=== PATIENT | female | born 1940 | race Caucasian/White ===

== ENCOUNTER 2017-10-03 11:44 | Emergency (ER) | payer OTHER ==
[2017-10-03 12:52] LABS: Absolute Lymphocytes (CBC) 3.5 K/uL (0.7-4.9); Absolute Monocytes 0.7 K/uL (0.1-1.3); Basophils % 0.6 % (0-1.3); Eosinophils % 1.5 % (0-4.4); Hematocrit 38.8 % (36.0-45.0); Lymphocytes % 47.2 % (15.3-44.8); MCH 36.4 pg (27.0-35.0); MCV 101.7 fL (80-100); MPV 7.1 fL (7.6-11.3); Monocytes % 9.7 % (3.3-12.3); RBC Red Blood Cell Count 3.81 M/uL (3.86-4.86)
[2017-10-03 13:08] LABS: Potassium 3.8 mmol/L (3.5-5.1)
--- NOTE | 2017-10-03 13:33 | RAD REPORT ---
EXAM DESCRIPTION: Saumya Single View10/03/2017 12:57 pm CLINICAL HISTORY: cough COMPARISON: December 2016 FINDINGS: The lungs appear clear of acute infiltrate. The heart is normal size IMPRESSION: No acute abnormalities displayed
--- NOTE | 2017-10-03 13:43 | RAD REPORT ---
EXAM DESCRIPTION: CT - Soft Tissue Neck W/Contr - 10/03/2017 1:29 pm CLINICAL HISTORY: Neck pain/sore throat COMPARISON: None. TECHNIQUE: Computed axial tomography of the neck was obtained. 50 cc Isovue-300 administered intrave nously. Coronal and sagittal reconstruction was performed All CT scans are performed using dose optimization technique as appropriate and may include automated exposure control or mA/KV adjustment according to patient size. FINDINGS: The uvula is mildly edematous. The remainder of the pharynx, larynx, tongue bases subglottic trachea is unremarkable. The parotid, submandibular and thyroid glands appear unremarkable. No lymphadenopathy is seen. 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
--- NOTE | 2017-10-03 13:57 | ER ---
Nurse's Notes [facility] Name: Mary Lou Greer Age: 77 yrs Sex: Female : 1940 Arrival Date: 10/03/2017 Time: 11:48 Bed 16 Private MD: Robert Garcia C Diagnosis: Acute pharyngitis;Uvulitis Presentation: 10/03 11:58 Presenting complaint: Patient states: has had sore throat , productive cough, was seen iw by Dr. Garcia last week, put on amoxicillin for throat infection, not getting better, running low grade fever this morning, mild SOB, feels achy between her shoulder blades. Transition of care: patient was not received from another setting of care. Onset of symptoms was September 24, 2017. Risk Assessment: Do you want to hurt yourself or someone else? Patient reports no desire to harm self or others. Initial Sepsis Screen: Does the patient meet any 2 criteria? No. Patient's initial sepsis screen is negative. Does the patient have a suspected source of infection? No. Patient's initial sepsis screen is negative. Care prior to arrival: None. 11:58 Method Of Arrival: Ambulatory iw 11:58 Acuity: DEMARIO 3 iw Historical: - Allergies: 12:13 No Known Allergies; tw2 12:14 NKA; iw - Home Meds: 12:14 levothyroxine 75 mcg tab 1 tab once daily [Active]; Protonix 40 mg Oral grps 1 packet iw once daily [Active]; prednisone 2.5 mg Oral tab once daily [Active]; folic acid 1 mg Oral tab 1 tab once daily [Active]; valsartan oral 12.5 mg oral once daily [Active]; methotrexate sodium 2.5 mg Oral tab 2 tabs once wkly [Active]; simvastatin 20 mg Oral tab 1 tab once daily [Active]; hydroxychloroquine 200 mg oral tab 2 times per day [Active]; gabapentin 300 mg oral cap 1 cap 3 times per day [Active]; rituximab intravenous intravenous [Active]; - PMHx: 12:14 Hypothyroidism; Rheumatoid Arthritis; iw - PSHx: 12:13 breast reduction; Appendectomy; partial hysterectomy; L wrist; tw2 12:14 breast reduction; Appendectomy; partial hysterectomy; L wrist; iw - Immunization history:: Adult Immunizations up to date, Adult Immunizations up to date. - Social history:: Smoking status: Patient/guardian denies using tobacco, Patient/guardian denies using Smoking status: Patient/guardian denies using tobacco. - Ebola Screening: : Patient denies travel to an Ebola-affected area in the 21 days before illness onset Patient negative for fever greater than or equal to 101.5 degrees Fahrenheit, and additional compatible Ebola Virus Disease symptoms Patient denies exposure to infectious person Patient denies travel to an Ebola-affected area in the 21 days before illness onset No symptoms or risks identified at this time. Screenin:03 Abuse screen: Denies threats or abuse. Nutritional screening: No deficits noted. tw2 Tuberculosis screening: No symptoms or risk factors identified. Fall Risk None identified. Assessment: 11:55 General: Appears in no apparent distress. well groomed, Behavior is calm, cooperative, tw2 appropriate for age. Pain: Denies pain. Neuro: Level of Consciousness is awake, alert, obeys commands, Oriented to person, place, time, situation. Cardiovascular: Denies chest pain, shortness of breath, Heart tones S1 S2 Patient's skin is warm and dry. Respiratory: Airway is patent Respiratory effort is even, unlabored, Respiratory pattern is regular, symmetrical, Breath sounds are clear bilaterally. GI: No signs and/or symptoms were reported involving the gastrointestinal system. Abdomen is round non-distended, obese, Bowel sounds present X 4 quads. : No signs and/or symptoms were reported regarding the genitourinary system. EENT: No signs and/or symptoms were reported regarding the EENT system. Derm: No signs and/or symptoms reported regarding the dermatologic system. Skin is intact, is healthy with good turgor, Skin is dry. Musculoskeletal: Range of motion: intact in all extremities, pt has RA, noted deformities in hand joints. 12:44 Reassessment: Patient appears in no apparent distress at this time. No changes from tw2 previously documented assessment. Patient and/or family updated on plan of care and expected duration. Pain level reassessed. Patient is alert, oriented x 3, equal unlabored respirations, skin warm/dry/pink. 13:52 Reassessment: Patient appears in no apparent distress at this time. No changes from tw2 previously documented assessment. Patient and/or family updated on plan of care and expected duration. Pain level reassessed. Patient is alert, oriented x 3, equal unlabored respirations, skin warm/dry/pink. Vital Signs: 12:02 BP 138 / 115; Pulse 96; Resp 16 S; Temp 98.7(O); Pulse Ox 97% on R/A; Weight 68.04 kg; iw Height 5 ft. 0 in. (152.40 cm); Pain 8/10; 12:18 BP 120 / 65; iw 12:44 BP 119 / 75; Pulse 78; Resp 17; Pulse Ox 95% on R/A; tw2 13:53 BP 134 / 80; Pulse 88; Resp 17; Pulse Ox 95% on R/A; tw2 12:02 Body Mass Index 29.29 (68.04 kg, 152.40 cm) iw ED Course: 11:48 Patient arrived in ED. mr 11:48 Robert Garcia MD is Private Physician. mr 11:55 [facility] jr8 11:55 Holland Walker MD is Attending Physician. jr8 12:02 Triage completed. iw 12:02 Arm band placed on. iw 12:03 Alexandria Plascencia, RN is Primary Nurse. tw2 12:03 Bed in low position. Call light in reach. Pulse ox on. NIBP on. tw2 12:37 Radiology exam delayed due to lab results not completed at this time. (BUN/Creatinine). vm2 12:47 Basic Metabolic Panel Sent. ds4 12:47 CBC with Diff Sent. ds4 12:47 Inserted saline lock: 20 gauge in left antecubital area, using aseptic technique. Blood ds4 collected. 12:54 Radiology exam delayed due to lab results not completed at this time. (BUN/Creatinine). vm2 12:55 XRAY Chest (1 view) In Process Unspecified. EDMS 13:28 CT completed. Patient moved to CT via wheelchair. Patient moved back from CT. cw1 13:29 CT Soft Tissue Neck W/contr In Process Unspecified. EDMS 13:55 Robert Garcia MD is Referral Physician. jr8 14:02 No provider procedures requiring assistance completed. IV discontinued, intact, tw2 bleeding controlled, No redness/swelling at site. Pressure dressing applied. Administered Medications: No medications were administered Outcome: 13:56 Discharge ordered by . jr8 14:02 Discharged to home ambulatory. tw2 14:02 Condition: stable 14:02 Condition: stable 14:02 Discharge instructions given to patient, Instructed on discharge instructions, follow up and referral plans. medication usage, Demonstrated understanding of instructions, follow-up care, medications, Prescriptions given X 1. 14:03 Patient left the ED. tw2 Signatures: Dispatcher [employer] EDRI Alondra Najrea Irene, RN RN Berta Power cw1 Олег Burns PA PA jr8 Grabiel Wood ds4 Alexandria Plascencia RN RN tw2 Elaine Sarabia 2
--- NOTE | 2017-10-03 13:57 | EDPHYS ---
Physician Documentation [facility] Name: Mary Lou Greer Age: 77 yrs Sex: Female : 1940 Arrival Date: 10/03/2017 Time: 11:48 Bed 16 Private MD: Robert Garcia C ED Physician Holland Walker HPI: 10/03 12:53 This 77 yrs old Female presents to ER via Ambulatory with complaints of Neck jr8 Swelling, Cough. 12:53 Onset: The symptoms/episode began/occurred gradually, 1 week(s) ago. Associated signs jr8 and symptoms: Pertinent positives: fever, cough. The pain does not radiate. Modifying factors: The symptoms are alleviated by nothing. the symptoms are aggravated by swallowing. Severity of symptoms: At their worst the symptoms were moderate, in the emergency department the symptoms are unchanged. The patient has not experienced similar symptoms in the past. The patient has been recently seen by a physician:. Patient stated that she started with sore throat and cough last week. Was seen by urgent care and PCP. Was given cough medicine and antibiotics. Stated that pain persists and feels worse. Has had on/off fevers . Historical: - Allergies: 12:13 No Known Allergies; tw2 12:14 NKA; iw - Home Meds: 12:14 levothyroxine 75 mcg tab 1 tab once daily [Active]; Protonix 40 mg Oral grps 1 packet iw once daily [Active]; prednisone 2.5 mg Oral tab once daily [Active]; folic acid 1 mg Oral tab 1 tab once daily [Active]; valsartan oral 12.5 mg oral once daily [Active]; methotrexate sodium 2.5 mg Oral tab 2 tabs once wkly [Active]; simvastatin 20 mg Oral tab 1 tab once daily [Active]; hydroxychloroquine 200 mg oral tab 2 times per day [Active]; gabapentin 300 mg oral cap 1 cap 3 times per day [Active]; rituximab intravenous intravenous [Active]; - PMHx: 12:14 Hypothyroidism; Rheumatoid Arthritis; iw - PSHx: 12:13 breast reduction; Appendectomy; partial hysterectomy; L wrist; tw2 12:14 breast reduction; Appendectomy; partial hysterectomy; L wrist; iw - Immunization history:: Adult Immunizations up to date, Adult Immunizations up to date. - Social history:: Smoking status: Patient/guardian denies using tobacco, Patient/guardian denies using Smoking status: Patient/guardian denies using tobacco. - Ebola Screening: : Patient denies travel to an Ebola-affected area in the 21 days before illness onset Patient negative for fever greater than or equal to 101.5 degrees Fahrenheit, and additional compatible Ebola Virus Disease symptoms Patient denies exposure to infectious person Patient denies travel to an Ebola-affected area in the 21 days before illness onset No symptoms or risks identified at this time. ROS: 12:53 Eyes: Negative for injury, pain, redness, and discharge, Cardiovascular: Negative for jr8 chest pain, palpitations, and edema, Abdomen/GI: Negative for abdominal pain, nausea, vomiting, diarrhea, and constipation, Back: Negative for injury and pain, MS/Extremity: Negative for injury and deformity, Skin: Negative for injury, rash, and discoloration, Neuro: Negative for headache, weakness, numbness, tingling, and seizure. 12:53 ENT: Positive for sore throat, Negative for drainage from ear(s), ear pain, nasal discharge, rhinorrhea, sinus congestion, difficulty swallowing, difficulty handling secretions. 12:53 Neck: Positive for pain at rest, Negative for pain with movement, stiffness, swelling, tenderness. 12:53 Respiratory: Positive for cough, Negative for dyspnea on exertion, shortness of breath, sputum production, wheezing. Exam: 12:53 Eyes: Pupils equal round and reactive to light, extra-ocular motions intact. Lids and jr8 lashes normal. Conjunctiva and sclera are non-icteric and not injected. Cornea within normal limits. Periorbital areas with no swelling, redness, or edema. ENT: Nares patent. No nasal discharge, no septal abnormalities noted. Tympanic membranes are normal and external auditory canals are clear. Oropharynx with no redness, swelling, or masses, exudates, or evidence of obstruction, uvula midline. Mucous membranes moist. Neck: Trachea midline, no thyromegaly or masses palpated, and no cervical lymphadenopathy. Supple, full range of motion without nuchal rigidity, or vertebral point tenderness. No Meningismus. Cardiovascular: Regular rate and rhythm with a normal S1 and S2. No gallops, murmurs, or rubs. Normal PMI, no JVD. No pulse deficits. Respiratory: Lungs have equal breath sounds bilaterally, clear to auscultation and percussion. No rales, rhonchi or wheezes noted. No increased work of breathing, no retractions or nasal flaring. Abdomen/GI: Soft, non-tender, with normal bowel sounds. No distension or tympany. No guarding or rebound. No evidence of tenderness throughout. Back: No spinal tenderness. No costovertebral tenderness. Full range of motion. Skin: Warm, dry with normal turgor. Normal color with no rashes, no lesions, and no evidence of cellulitis. MS/ Extremity: Pulses equal, no cyanosis. Neurovascular intact. Full, normal range of motion. Neuro: Awake and alert, GCS 15, oriented to person, place, time, and situation. Cranial nerves II-XII grossly intact. Motor strength 5/5 in all extremities. Sensory grossly intact. Cerebellar exam normal. Normal gait. Vital Signs: 12:02 BP 138 / 115; Pulse 96; Resp 16 S; Temp 98.7(O); Pulse Ox 97% on R/A; Weight 68.04 kg; iw Height 5 ft. 0 in. (152.40 cm); Pain 8/10; 12:18 BP 120 / 65; iw 12:44 BP 119 / 75; Pulse 78; Resp 17; Pulse Ox 95% on R/A; tw2 13:53 BP 134 / 80; Pulse 88; Resp 17; Pulse Ox 95% on R/A; tw2 12:02 Body Mass Index 29.29 (68.04 kg, 152.40 cm) iw MDM: 11:55 Patient medically screened. [facility] 13:54 Data reviewed: vital signs, nurses notes, and as a result, I will discharge patient. [facility] Data interpreted: Pulse oximetry: on room air is 95 %. Interpretation: normal. Counseling: I had a detailed discussion with the patient and/or guardian regarding: the historical points, exam findings, and any diagnostic results supporting the discharge/admit diagnosis, lab results, radiology results, the need for outpatient follow up, a family practitioner, to return to the emergency department if symptoms worsen or persist or if there are any questions or concerns that arise at home. 10/03 12:29 Order name: CBC with Diff; Complete Time: 12:57 [facility] 10/03 12:29 Order name: Basic Metabolic Panel; Complete Time: 13:09 [facility] 10/03 12:11 Order name: XRAY Chest (1 view); Complete Time: 13:35 8 10/03 12:11 Order name: EKG - Nurse/Tech; Complete Time: 12:34 8 10/03 12:29 Order name: IV; Complete Time: 12:47 8 10/03 12:29 Order name: CT Soft Tissue Neck W/contr; Complete Time: 13:54 jr8 Administered Medications: No medications were administered Disposition: 10/03/17 13:56 Discharged to Home. Impression: Acute pharyngitis, Uvulitis. - Condition is Stable. - Discharge Instructions: Pharyngitis, Uvulitis. - Prescriptions for Zithromax Z- Jerad 250 mg Oral Tablet - take 1 tablet by ORAL route as directed for 5 days Day 1 - take two (2) tablets one time. Day 2, 3, 4 , 5 take one (1) tablet once daily.; 6 tablet. - Medication Reconciliation Form, Thank You Letter, Antibiotic Education, Prescription Opioid Use form. - Follow up: Robert Garcia MD; When: 5 - 6 days; Reason: Recheck today's complaints, Continuance of care, Re-evaluation by your physician. - Problem is new. - Symptoms have improved. Addendum: 10/04/2017 14:19 Co-signature as Attending Physician, Holland Walker MD I agree with the assessment and c angel plan of care. Signatures: Dispatcher [employer] [facility] Holland Walker MD MD cha Williams, Irene, RN YUKO Олег Burns PA PA jr8 Alexandria Plascencia RN RN tw2 Corrections: (The following items were deleted from the chart) 10/03 14:03 13:56 10/03/2017 13:56 Discharged to Home. Impression: Acute pharyngitis; Uvulitis. tw2 Condition is Stable. Forms are Medication Reconciliation Form, Thank You Letter, Antibiotic Education, Prescription Opioid Use. Follow up: Robert Garcia; When: 5 - 6 days; Reason: Recheck today's complaints, Continuance of care, Re-evaluation by your physician. Problem is new. Symptoms have improved. jr8
--- NOTE | 2017-10-04 07:34 | EKG ---
Test Date: 2017-10-03 Test Time: 12:28:20 Inventory Control Clerk: BLANCA MEASUREMENT RESULTS: Intervals: Rate: 87 RI: 158 QRSD: 92 QT: 392 QTc: 471 [place]: P: 33 RI: 158 QRS: -18 T: 22 INTERPRETIVE STATEMENTS: Normal sinus rhythm Normal ECG Compared to ECG 12/16/2015 15:04:38 No significant changes Electronically Signed On 10-04-17 07:34:04 CDT by Javed Aguayo
== END 2017-10-03 14:03 | disposition home or self-care (01) ==
LOC: ER 11:44
DX: J02.9 Acute pharyngitis, unspecified (principal); K12.2 Cellulitis and abscess of mouth; E03.9 Hypothyroidism, unspecified; M06.9 Rheumatoid arthritis, unspecified
CPT/HCPCS: 36415; 70491; 71045; 80048; 85025; 93005; 99284; Q9967

== ENCOUNTER 2018-11-01 07:52 | Day surgery (SDC) | payer OTHER ==
[2018-11-01] MEDS ORDERED: Ringers Lactate 1,000 ML IV ONE (08:41)
[2018-11-01] MEDS ORDERED: PROPOFOL 200 MG/20 ML VIAL IV ONE (09:41)
[2018-11-01 11:19] VITALS: BP 120/65; TEMP 97; O2SAT 100
--- NOTE | 2018-11-01 20:54 | OP ---
Surgeon: Harry Oliver MD Procedure To Be Performed: Esophagogastroduodenoscopy. Indication For Procedure: Abnormal modified barium swallow, dysphagia, chronic hoarseness. Plan For Anesthesia: Monitored anesthesia care. Complexity: Average. Technique: After obtaining informed consent from the patient explaining risks and complications whic h include, but are not limited to bleeding, infection, perforation, and anesthesia complication, the patient was placed in left lateral position and sedation was given. From then on, the scope was adva nced through the mouth and carefully guided up till the second portion of the duodenum. After the co mpletion of examination and all therapeutic and diagnostic maneuvers, scope and equipment were withdr awn and procedure terminated in a safe manner. Findings: In the duodenum, no abnormality was seen. Stomach, mild patchy erythema seen in the body and antrum. Biopsies taken. Also seen in the stomach with several fundic type polyps from 5-10 mm. Ux Specialist biopsies taken. Esophagus, no characteristics stenosis or narrowing seen in the esop hagus, but there was evidence of some tortuosity and possibly peristalsis. Biopsies taken to rule ou t eosinophilic esophagitis. To give the patient benefit of the doubt, decision was taken to dilate t he esophagus, so I used through the scope balloon dilator and dilated the whole esophagus and dilated the distal and mid portions up to 15 mm while holding pressure for 30 seconds. We will see how if t hat has improved the patient's symptoms. Complications: None. Tolerance To Anesthesia: Excellent. Postoperative Diagnosis: Esophageal dysmotility and tortuosity, gastritis, gastric polyps. Plan: 1.Await pathology results. 2.Follow up in the GI clinic in 2 weeks. 3.Continue PPI. US/MODL Voice ID: [id number] Report ID: [id number]
== END 2018-11-01 11:45 | disposition home or self-care (01) ==
LOC: OR 07:52
PROVIDERS: ATTEND Internal Medicine Gastroenterology
PROC: 0DB58ZX Excision of Esophagus, Via Natural or Artificial Opening Endoscopic, Diagnostic (ICD-10-PCS; 2018-11-01)
PROC: 0DB68ZX Excision of Stomach, Via Natural or Artificial Opening Endoscopic, Diagnostic (ICD-10-PCS; 2018-11-01)
PROC: 0D758ZZ Dilation of Esophagus, Via Natural or Artificial Opening Endoscopic (ICD-10-PCS; principal; 2018-11-01 09:30)
DX: K22.4 Dyskinesia of esophagus (principal); K29.50 Unspecified chronic gastritis without bleeding; K31.7 Polyp of stomach and duodenum; R49.0 Dysphonia; K21.9 Gastro-esophageal reflux disease without esophagitis; R63.4 Abnormal weight loss; I10 Essential (primary) hypertension; E07.9 Disorder of thyroid, unspecified; M06.9 Rheumatoid arthritis, unspecified; Z90.49 Acquired absence of other specified parts of digestive tract; Z82.49 Family history of ischemic heart disease and other diseases of the circulatory system; Z83.3 Family history of diabetes mellitus
CPT/HCPCS: 43249; 43239; 88312; 88305; J2704; C1726

== ENCOUNTER 2018-12-27 06:50 | Day surgery (SDC) | payer OTHER ==
[2018-12-27] MEDS ORDERED: LIDOCAINE 1% MPF 5 ML VIAL ONE (07:13)
[2018-12-27] MEDS ORDERED: PROPOFOL 200 MG/20 ML VIAL IV ONE (07:13)
[2018-12-27] MEDS ORDERED: Ringers Lactate 1,000 ML IV ONE (07:19)
[2018-12-27 09:28] VITALS: TEMP 97.7
[2018-12-27 09:37] VITALS: BP 126/57; O2SAT 99
--- NOTE | 2018-12-27 20:07 | OP ---
Surgeon: Harry Oliver MD Procedure To Be Performed: Colonoscopy. Performing Physician: Harry Oliver MD. Indication For Procedures: Screening. Also remote history of polyps. Plan For Anesthesia: Monitored anesthesia care. Complexity: Average. Technique: After obtaining informed consent from the patient and explaining risks and complications which include but are not limited to bleeding, infection, perforation and anesthesia complications, p atient was placed in the left lateral position. Sedation was given. From then on, the digital recta l exam was performed and then scope inserted into the rectum and carefully guided up till the cecum. The cecum was identified by the ileocecal valve and appendiceal orifice. Gradually, scope withdrawn while carefully examining the mucosa. Quality of prep according to [place] prep score was 2 + 2 + 2 = 6/9. Scope withdrawal time was 14 minutes. Findings: Digital rectal exam did not reveal any significant abnormality. Multiple several small an d medium-sized diverticula were seen dispersed in the entire colon. 4 mm polyp seen in the descendin g colon, removed with hot biopsy. In the proximal transverse colon, a flat 7 mm polyp was seen. Thi s was removed with hot biopsy polypectomy. Retroflexion revealed grade 1 internal hemorrhoids. Complications: None. Tolerance To Anesthesia: Excellent. Postop Diagnosis: Diverticulosis, polyp. Plan: 1.Await pathology results. 2.Follow up in the GI clinic in 2 weeks. 3.Repeat colonoscopy 3-5 years based on pathology. 4.High-fiber diet. US/MODL Voice ID: [id number] Report ID: [id number]
== END 2018-12-27 10:10 | disposition home or self-care (01) ==
LOC: OR 06:50
PROVIDERS: ATTEND Internal Medicine Gastroenterology
PROC: 0DBL8ZX Excision of Transverse Colon, Via Natural or Artificial Opening Endoscopic, Diagnostic (ICD-10-PCS; 2018-12-27)
PROC: 0DBM8ZX Excision of Descending Colon, Via Natural or Artificial Opening Endoscopic, Diagnostic (ICD-10-PCS; principal; 2018-12-27 08:00)
DX: Z12.11 Encounter for screening for malignant neoplasm of colon (principal); K63.5 Polyp of colon; K57.30 Diverticulosis of large intestine without perforation or abscess without bleeding; K64.8 Other hemorrhoids; K21.9 Gastro-esophageal reflux disease without esophagitis; I10 Essential (primary) hypertension; E07.9 Disorder of thyroid, unspecified; M06.849 Other specified rheumatoid arthritis, unspecified hand; Z83.3 Family history of diabetes mellitus; Z82.49 Family history of ischemic heart disease and other diseases of the circulatory system
CPT/HCPCS: 88305; 45384; J2704; J7120

== ENCOUNTER 2021-06-20 08:52 | Day surgery (SDC) | payer BC, OTHER ==
[2021-06-20] MEDS ORDERED: ACETAMINOPHEN 325 MG TABLET ONE (09:33)
[2021-06-20] MEDS ORDERED: DIPHENHYDRAMINE 25 MG TAB/CAP ONE (09:33)
[2021-06-20] MEDS ORDERED: Zoledronic Acid/Mannitol/Water 5 MG/100 ML INFUS.BOT IV SCH (10:00)
[2021-06-20 10:03] LABS: Albumin 3.6 g/dL (3.4-5.0); Bilirubin Total 0.5 mg/dL (0.2-1.0); Potassium 3.7 mmol/L (3.5-5.1); Protein, Total 6.1 g/dL (6.4-8.2)
[2021-06-20 10:23] VITALS: O2SAT 100; BMI 26.4
[2021-06-20] MEDS ORDERED: HEPARIN 500 UNIT/5 ML SYR IV ONE (10:59)
[2021-06-20 11:25] VITALS: BP 122/63; TEMP 97.3
== END 2021-06-20 11:06 | disposition home or self-care (01) ==
LOC: DS 08:52
PROVIDERS: ATTEND Internal Medicine
DX: M81.0 Age-related osteoporosis without current pathological fracture (principal)
CPT/HCPCS: 36415; 80053; 96365; J3489; J1642